=== PATIENT | female | born 1965 | race American Indian/Alaskan Native ===

== ENCOUNTER 2018-04-15 09:49 | Day surgery (SDC) | payer OTHER ==
[~2018-04-15 09:49] MED LIST: Bupivacaine 0.25%/EPINEPHrine 1:200,000 10 ML SDV INJECT ONE; Bupivacaine 0.5% 10 ML SDV ONE; Bupivacaine 25%/EPINEPHrine/PF 30 ML ONE; Clindamycin Phosphate in D5W 600 MG in Premix Bag 1 BAG IV ONE; EPINEPHrine 1 MG/ML SDV ONE; Gentamicin 40 MG/ML 2 ML Vial ONE; Lidocaine 2% 5 ML SDV ONE; Midazolam 1 MG/ML 2 ML SDV ONE; Ondansetron 4 MG Tab.DIS PO PRN; Ondansetron 4 MG/2 ML SDV ONE; Propofol 200 MG/20 ML SDV ONE; Rocuronium 10 MG/ML 10 ML Syringe ONE; ceFAZolin 1 GM Vial ONE; fentaNYL 250 MCG/5 ML SDV ONE
[2018-04-15] MEDS ORDERED: Propofol 200 MG/20 ML SDV ONE ×3 (10:27→14:42)
[2018-04-15] MEDS ORDERED: Lidocaine 2% 5 ML SDV ONE (10:27)
[2018-04-15] MEDS ORDERED: Midazolam 1 MG/ML 2 ML SDV ONE (10:28)
[2018-04-15] MEDS ORDERED: fentaNYL 100 MCG/2 ML SDV ONE (10:28)
[2018-04-15] MEDS ORDERED: Ondansetron 4 MG/2 ML SDV ONE (10:28)
[2018-04-15] MEDS ORDERED: fentaNYL 250 MCG/5 ML SDV ONE (10:29)
--- NOTE | 2018-04-15 11:36 | PCM.PREANE ---
Preanesthetic Assessment - Anesthesia/Transfusion/Family Hx Anesthesia History: Prior Anesthesia Without Reaction Family History of Anesthesia Reaction: No Transfusion History: No Prior Transfusion(s) Intubation History: Unknown - Review of Systems General: No Symptoms Pulmonary: No Symptoms Cardiovascular: No Symptoms Gastrointestinal: No Symptoms Neurological: No Symptoms Other: Reports: None - Physical Assessment Height: 1.68 m Weight: 82.554 kg ASA Class: 2 Mental Status: Alert & Oriented x3 Airway Class: Mallampati = 2 Dentition: Reports: Dentures (upper), Broken Tooth/Teeth (front lower incisor x1 ) Thyro-Mental Finger Breadths: 3 Mouth Opening Finger Breadths: 3 ROM/Head Extension: Full Lungs: Clear to Auscultation, Normal Respiratory Effort Cardiovascular: Regular Rate, Regular Rhythm - Allergies Allergies/Adverse Reactions: Allergies Allergy/AdvReac Type Severity Reaction Status Date / Time aspirin Allergy Hives Verified 04/13/18 07:51 erythromycin base Allergy Anaphylactic Verified 04/13/18 07:51 Shock Penicillins Allergy Anaphylactic Verified 04/13/18 07:51 Shock - Blood Blood Available: No - Anesthesia Plan Pre-Op Medication Ordered: None - Acknowledgements Anesthesia Type Planned: General Anesthesia Pt an Appropriate Candidate for the Planned Anesthesia: Yes Alternatives and Risks of Anesthesia Discussed w Pt/Guardian: Yes Pt/Guardian Understands and Agrees with Anesthesia Plan: Yes PreAnesthesia Questionnaire HEENT History: Reports: Other (See Below) Other HEENT History: wears glasses, has top denture Genitourinary History: Reports: None Musculoskeletal History: Reports: Fracture Other Musculoskeletal History: hx fx toes, ribs, arm and leg Oncologic (Cancer) History: Reports: Breast (right breast invasive breast ductal carcinoma) - Past Surgical History Head Surgeries/Procedures: Reports: None Female Surgical History: Reports: Breast Biopsy Oncologic Surgical History: Reports: Biopsy of Breast - SUBSTANCE USE Smoking Status *Q: Light Tobacco Smoker (5-6 cigarettes per day at present) Tobacco Use Within Last Twelve Months: Cigarettes Recreational Drug Use History: No - HOME MEDS Home Medications: Home Meds Acetaminophen [Tylenol] 2 tab PO ASDIRECTED PRN 04/13/18 [History] - CURRENT (IN HOUSE) MEDS Current Meds: Current Medications Hydrocodone Bitart/Acetaminophen ([place] 325-5 Mg) 1 tab PO Q4H PRN PRN Reason: Pain Lactated Ringer's (Ringers, Lactated) 1,000 mls @ 125 mls/hr IV ASDIRECTED SINDI Ondansetron HCl (Zofran Odt) 4 mg PO Q6H PRN PRN Reason: Nausea/Vomiting Ondansetron HCl (Zofran) 4 mg IVPUSH Q6H PRN PRN Reason: Nausea/Vomiting Discontinued Medications Bupivacaine HCl (Sensorcaine-Mpf 0.5%) Confirm Administered Dose 10 ml .ROUTE .STK-MED ONE Stop: 04/15/18 07:23 Bupivacaine HCl/Epinephrine Bitart (Marc[place] 0.25%/Epinephrine 1:200,000) 10 ml INJECT ONETIME ONE Stop: 04/15/18 08:01 Cefazolin Sodium (Ancef) Confirm Administered Dose 1 gm .ROUTE .STK-MED ONE Stop: 04/15/18 07:23 Epinephrine HCl (Adrenalin) Confirm Administered Dose 1 mg .ROUTE .STK-MED ONE Stop: 04/15/18 07:22 Fentanyl (Sublimaze) Confirm Administered Dose 250 mcg .ROUTE .STK-MED ONE Stop: 04/15/18 08:56 Fentanyl (Sublimaze) Confirm Administered Dose 100 mcg .ROUTE .STK-MED ONE Stop: 04/15/18 10:29 Fentanyl (Sublimaze) Confirm Administered Dose 250 mcg .ROUTE .STK-MED ONE Stop: 04/15/18 10:30 Gentamicin Sulfate (Gentamicin) Confirm Administered Dose 80 mg .ROUTE .STK-MED ONE Stop: 04/15/18 07:22 Clindamycin Phosphate 600 mg/ (Premix) 50 mls @ 150 mls/hr IV ONETIME ONE Stop: 04/15/18 08:19 Bupivacaine HCl/Epinephrine Bitart (Sensorc Mpf 0.25%-Epi 1:451672) Confirm Administered Dose 30 mls @ as directed .ROUTE .STK-MED ONE Stop: 04/15/18 07:23 Lidocaine (Xylocaine-Mpf 2%) Confirm Administered Dose 5 ml .ROUTE .STK-MED ONE Stop: 04/15/18 08:56 Lidocaine (Xylocaine-Mpf 2%) Confirm Administered Dose 5 ml .ROUTE .STK-MED ONE Stop: 04/15/18 10:28 Midazolam HCl (Versed 1 Mg/Ml) Confirm Administered Dose 2 mg .ROUTE .STK-MED ONE Stop: 04/15/18 08:56 Midazolam HCl (Versed 1 Mg/Ml) Confirm Administered Dose 2 mg .ROUTE .STK-MED ONE Stop: 04/15/18 10:29 Ondansetron HCl (Zofran) Confirm Administered Dose 4 mg .ROUTE .STK-MED ONE Stop: 04/15/18 08:56 Ondansetron HCl (Zofran) Confirm Administered Dose 8 mg .ROUTE .STK-MED ONE Stop: 04/15/18 10:29 Propofol (Diprivan 20 Ml) Confirm Administered Dose 200 mg .ROUTE .STK-MED ONE Stop: 04/15/18 08:56 Propofol (Diprivan 20 Ml) Confirm Administered Dose 200 mg .ROUTE .STK-MED ONE Stop: 04/15/18 10:28 Propofol (Diprivan 20 Ml) Confirm Administered Dose 400 mg .ROUTE .STK-MED ONE Stop: 04/15/18 10:29 Rocuronium [place] (Zemuron) Confirm Administered Dose 100 mg .ROUTE .STK-MED ONE Stop: 04/15/18 08:56
[2018-04-15] MEDS ORDERED: Clindamycin Phosphate in D5W 50 ML ONE (11:52)
[2018-04-15] MEDS ORDERED: Clindamycin Phosphate in D5W 600 MG in Premix Bag 1 BAG IV ONE ×2 (12:00)
[2018-04-15] MEDS ORDERED: ePHEDrine 50 MG/ML SDV ONE (12:26)
--- NOTE | 2018-04-15 12:31 | NM ---
EXAMINATION: NM right breast lymphoscintigraphy HISTORY: Breast cancer COMPARISON: CT dated 03/08/2018 TECHNIQUE: The procedure, risks, and benefits were discussed with the patient. The right breast was p repped with ChloraPrep. A total of 8 intradermal injections were obtained around the right areola. FINDINGS/IMPRESSION: There is a sentinel lymph node which appears almost immediately within the right axilla.
[2018-04-15] MEDS ORDERED: HYDROmorphone 2 MG/ML SDV ONE ×2 (13:19→16:40)
[2018-04-15] MEDS ORDERED: Sugammadex Sodium 200 MG/2 ML VIAL ONE (13:54)
--- NOTE | 2018-04-15 15:28 | PCM.OPNOTE ---
- General Post-Op/Procedure Note Date of Surgery/Procedure: 04/15/18 Operative Procedure(s): Right sentinel lymph node biopsy and right mastectomy Findings: ~3-4 cm mass in the right upper outer quadrant of the breast. 2 lymph nodes. no evidence of metastases on frozen Pre Op Diagnosis: Right breast invasive ductal carcinoma Post-Op Diagnosis: same Anesthesia Technique: General ET Tube Primary Surgeon: Fior Kelly Secondary Surgeon: Thao Mixon Fluid Replacement, Intraop: 3,900 Output, Urine Amount: 75 EBL in mLs: 100 Surgical Drain/Tube Type: [place] Flat Drain Drain/Tube Comments:: [address] Condition: Good
[2018-04-15] MEDS ORDERED: Clindamycin HCl 150 MG Cap PO SCH (15:30)
[2018-04-15] MEDS ORDERED: Promethazine 25 MG/ML SDV IM PRN (15:31)
[2018-04-15] MEDS ORDERED: diphenhydrAMINE 50 MG/ML SDV IVPUSH PRN (15:31)
--- NOTE | 2018-04-15 16:05 | PCM.OPNOTE ---
- General Post-Op/Procedure Note Date of Surgery/Procedure: 04/15/18 Operative Procedure(s): 1. Right breast reconstruction with 520cc silicone breast implant. 2. Left breast symmetry procedure - mastopexy Pre Op Diagnosis: s/p mastectomy and need for reconstruction Post-Op Diagnosis: Same Anesthesia Technique: General ET Tube, Local Primary Surgeon: Thao Mixon Secondary Surgeon: Fior Kelly EBL in mLs: 100 (for both protions of the case) Surgical Drain/Tube Type: [place] Drain (3 total - 1 size 10 axillary, 2 size 7 breast (one above and one below allomax).) Complications: None Condition: Good Free Text/Narrative:: Intake & Output 04/15/18 04/15/18 04/15/18 07:59 15:59 23:59 Intake Total 3900 Output Total 75 Balance 7045
[2018-04-15] MEDS: fentaNYL 100 MCG/2 ML SDV IVPUSH PRN ×2 (16:16→16:22)
--- NOTE | 2018-04-15 16:35 | PCM.POSTAN ---
POST ANESTHESIA ASSESSMENT - MENTAL STATUS Mental Status: Alert, Oriented - RESPIRATORY Respiratory Status: Respiratory Rate WNL, Airway Patent, O2 Saturation Stable - CARDIOVASCULAR CV Status: Pulse Rate WNL, Blood Pressure Stable - GASTROINTESTINAL GI Status: No Symptoms - PAIN Pain Score: 5 - POST OP HYDRATION Hydration Status: Adequate & Stable - OBSERVATIONS Free Text/Narrative:: Pt states pain as a 6 but unable to keep eyes open and slowly answering questions at this time. Will continue to monitor status on floor.
[2018-04-15] MEDS: Lactated Ringers 1,000 ML IV SCH (17:30)
[2018-04-15] MEDS: HYDROmorphone 1 MG/ML Syringe IVPUSH PRN (17:52)
[2018-04-15] MEDS: Clindamycin HCl 150 MG Cap PO SCH ×2 (17:57→21:34)
--- NOTE | 2018-04-15 19:28 | OR ---
SURGEON: FIOR KELLY MD DATE OF PROCEDURE: 04/15/2018 PREOPERATIVE DIAGNOSIS: Invasive ductal carcinoma of the right breast. POSTOPERATIVE DIAGNOSIS: Invasive ductal carcinoma of the right breast. PROCEDURES PERFORMED: Right sentinel lymph node biopsy, and right mastectomy. PRIMARY SURGEON: Fior Kelly MD SECONDARY SURGEON: Thao Mixon MD FLUIDS: 3900 mL. ESTIMATED BLOOD LOSS: 100 mL. URINE OUTPUT: 75 mL. SPECIMENS: Right sentinel lymph node, right breast tissue. FINDINGS: Two sentinel lymph nodes in right axilla, right upper outer quadrant breast mass that abutted the muscular or the pectoralis. COMPLICATIONS: None. INDICATIONS: The patient is a 52-year-old female, diagnosed with invasive ductal carcinoma of the right upper outer quadrant of the breast. The patient was scheduled to undergo a lumpectomy earlier this year; however, this was canceled. Preoperative workup revealed the mass now to be larger with no evidence radiologically or clinically of kimberly metastases. Given its larger size, the decision was made to perform a mastectomy. We discussed sentinel lymph node biopsy and right breast mastectomy. The patient met with Dr. Hien Mixon regarding her reconstruction options. She elected to go immediate breast reconstruction. From my portion of the case, I discussed the procedure with the patient. We discussed the expected perioperative course. We discussed the risks including bleeding, infection, or damage to surrounding structures. The patient verbalized understanding and wishes to proceed. PROCEDURE IN DETAIL: The patient was brought into the OR and placed on the OR table in supine position. A time-out was completed verifying the patient's name, age, date of , allergies, and procedure to be performed. General endotracheal anesthesia was induced. The chest and upper arms were prepped and draped in standard fashion. 5 mL of 1% Lymphazurin blue was injected subdermally around the areola of the right breast. This was massaged for 5 minutes to allow dispersion of the dye through the lymphatic system. MoVoxx counter was then brought into the field and I evaluated the right axilla. Radioactivity was indicated along the lower part of the axilla. An incision was made around the superior half of the areola extending laterally towards the axilla. Cautery was then used to dissect down through the skin down to the subcutaneous fat. Dr. Mixon and I focused our attention on the lateral most aspect of the incision. Cautery and blunt dissection were used to dissect down to the level of the axilla. The axillary fascia was opened with Metzenbaum scissors and the Emmanuel counter guided our dissection. Two areas of increased radioactivity and blue dye were noted within the axilla. The first node was removed and a Emmanuel counter was used to measure its radioactivity on the back table. This measured 1777. The second lymph node was then removed and its reading was 550. No further radioactivity was noted within the axilla. Cautery was used to achieve hemostasis. We then turned our attention to the breast tissue. Superior and inferior skin flaps were created and dissected off the underlying breast tissue with cautery. The nipple was spared. The breast cancer was palpated in the right upper outer quadrant, this came close to the skin as well as close to the pectoralis fascia below it. The breast tissue was then excised off the overlying pectoralis fascia using cautery. This was done in a medial to lateral fashion. Once the breast was from its surrounding tissue, it was marked. The cranial and caudal edges were marked with suture as well as axillary tail and medial tail. The retroareolar tissue was stained with Lymphazurin blue, but marked with a suture as well. The operative field was irrigated copiously with normal saline. Hemostasis was obtained with cautery. The case was then turned over to Dr. Thao Mixon for the reconstruction portion. Please see her note for further details. ERYN PORRAS /[id number] [place]
[2018-04-15] MEDS: Acetaminophen/HYDROcodone 325-5 MG Tab PO PRN (19:45)
[2018-04-15] MEDS: Ondansetron 4 MG/2 ML SDV IVPUSH PRN (21:46)
[2018-04-16] MEDS: Lactated Ringers 1,000 ML IV SCH (00:58)
[2018-04-16] MEDS: Acetaminophen/HYDROcodone 325-5 MG Tab PO PRN ×2 (02:46→14:24)
[2018-04-16] MEDS: Clindamycin HCl 150 MG Cap PO SCH ×2 (03:35→09:52)
[2018-04-16] MEDS: HYDROmorphone 1 MG/ML Syringe IVPUSH PRN (08:27)
[2018-04-16] MEDS ORDERED: Cyclobenzaprine 5 MG Tab PO PRN (08:39)
--- NOTE | 2018-04-16 08:51 | PCM.SURGPN ---
- General Info Date of Service: 04/16/18 Date of Surgery/Procedure: 04/15/18 Admission Diagnosis/Problem: Breast neoplasm Functional Status: Reports: Other (Complaining of pressure and pain along right chest and in right axilla. Vitals stable overnight. Taking [place] and given IV dilaudid for severe pain this morning. Drain output 131ml total since surgery. ) - Review of Systems General: Reports: No Symptoms Pulmonary: Reports: Shortness of Breath (due to pressure feeliong over right chest with bra on) Cardiovascular: Reports: Other (Pain along right side of chest ) Gastrointestinal: Reports: No Symptoms - Patient Data Vitals - Most Recent: Last Vital Signs Temp 37.0 C 04/16/18 00:00 Pulse 89 04/16/18 00:00 Resp 16 04/16/18 00:00 BP 137/75 04/16/18 00:00 Pulse Ox 94 L 04/16/18 00:00 Weight - Most Recent: 82.554 kg I&O - Last 24 Hours: Intake & Output 04/15/18 04/16/18 04/16/18 22:59 06:59 14:59 Intake Total 7900 2354 Output Total 125 4281 Balance 7775 -1927 Med Orders - Current: Current Medications Hydrocodone Bitart/Acetaminophen ([place] 325-5 Mg) 1 tab PO Q4H PRN PRN Reason: Pain Last Admin: 04/16/18 02:46 Dose: 2 tab Bisacodyl (Dulcolax) 5 mg PO DAILY [facility] Last Admin: 04/16/18 08:27 Dose: 5 mg Clindamycin HCl (Cleocin) 300 mg PO Q6H [facility] Last Admin: 04/16/18 03:35 Dose: 300 mg Cyclobenzaprine HCl (Flexeril) 5 mg PO TID PRN PRN Reason: Muscle Spasm Diphenhydramine HCl (Benadryl) 25 mg IVPUSH Q4H PRN PRN Reason: Itching Fentanyl (Sublimaze) 50 mcg IVPUSH Q5M PRN PRN Reason: Pain (severe 7-10) Stop: 04/16/18 14:44 Last Admin: 04/15/18 16:22 Dose: 50 mcg Hydromorphone HCl (Dilaudid) 0.5 mg IVPUSH Q1H PRN PRN Reason: Pain Last Admin: 04/16/18 08:27 Dose: 0.5 mg Lactated Ringer's (Ringers, Lactated) 1,000 mls @ 125 mls/hr IV ASDIRECTED SINDI Last Admin: 04/16/18 00:58 Dose: 125 mls/hr Ondansetron HCl (Zofran Odt) 4 mg PO Q6H PRN PRN Reason: Nausea/Vomiting Ondansetron HCl (Zofran) 4 mg IVPUSH Q6H PRN PRN Reason: Nausea/Vomiting Last Admin: 04/15/18 21:46 Dose: 4 mg Promethazine HCl (Phenergan) 25 mg IM Q6H PRN PRN Reason: Nausea Discontinued Medications Bupivacaine HCl (Sensorcaine-Mpf 0.5%) Confirm Administered Dose 10 ml .ROUTE .STK-MED ONE Stop: 04/15/18 07:23 Bupivacaine HCl/Epinephrine Bitart (Marcaine 0.25%/Epinephrine 1:200,000) 10 ml INJECT ONETIME ONE Stop: 04/15/18 08:01 Last Admin: 04/15/18 17:31 Dose: Not Given Cefazolin Sodium (Ancef) Confirm Administered Dose 1 gm .ROUTE .STK-MED ONE Stop: 04/15/18 07:23 Clindamycin HCl (Cleocin) 450 mg PO Q6H [facility] Last Admin: 04/15/18 18:23 Dose: Not Given Ephedrine Sulfate (Ephedrine Sulfate) Confirm Administered Dose 50 mg .ROUTE .STK-MED ONE Stop: 04/15/18 12:27 Epinephrine HCl (Adrenalin) Confirm Administered Dose 1 mg .ROUTE .STK-MED ONE Stop: 04/15/18 07:22 Fentanyl (Sublimaze) Confirm Administered Dose 250 mcg .ROUTE .STK-MED ONE Stop: 04/15/18 08:56 Fentanyl (Sublimaze) Confirm Administered Dose 100 mcg .ROUTE .STK-MED ONE Stop: 04/15/18 10:29 Fentanyl (Sublimaze) Confirm Administered Dose 250 mcg .ROUTE .STK-MED ONE Stop: 04/15/18 10:30 Gentamicin Sulfate (Gentamicin) Confirm Administered Dose 80 mg .ROUTE .STK-MED ONE Stop: 04/15/18 07:22 Hydromorphone HCl (Dilaudid) Confirm Administered Dose 2 mg .ROUTE .STK-MED ONE Stop: 04/15/18 13:20 Hydromorphone HCl (Dilaudid) Confirm Administered Dose 2 mg .ROUTE .STK-MED ONE Stop: 04/15/18 16:41 Last Admin: 04/15/18 16:43 Dose: 0.5 mg Clindamycin Phosphate 600 mg/ (Premix) 50 mls @ 150 mls/hr IV ONETIME ONE Stop: 04/15/18 08:19 Last Admin: 04/15/18 17:30 Dose: Not Given Bupivacaine HCl/Epinephrine Bitart (Sensorc Mpf 0.25%-Epi 1:[id number]) Confirm Administered Dose 30 mls @ as directed .ROUTE .STK-MED ONE Stop: 04/15/18 07:23 Clindamycin Phosphate 600 mg/ (Premix) 50 mls @ 150 mls/hr IV ONETIME ONE Stop: 04/15/18 12:19 Last Admin: 04/15/18 17:30 Dose: Not Given Clindamycin Phosphate (Cleocin In D5w) Confirm Administered Dose 50 mls @ as directed .ROUTE .STK-MED ONE Stop: 04/15/18 11:53 Last Admin: 04/15/18 17:31 Dose: Not Given Lidocaine (Xylocaine-Mpf 2%) Confirm Administered Dose 5 ml .ROUTE .STK-MED ONE Stop: 04/15/18 08:56 Lidocaine (Xylocaine-Mpf 2%) Confirm Administered Dose 5 ml .ROUTE .STK-MED ONE Stop: 04/15/18 10:28 Midazolam HCl (Versed 1 Mg/Ml) Confirm Administered Dose 2 mg .ROUTE .STK-MED ONE Stop: 04/15/18 08:56 Midazolam HCl (Versed 1 Mg/Ml) Confirm Administered Dose 2 mg .ROUTE .STK-MED ONE Stop: 04/15/18 10:29 Ondansetron HCl (Zofran) Confirm Administered Dose 4 mg .ROUTE .STK-MED ONE Stop: 04/15/18 08:56 Ondansetron HCl (Zofran) Confirm Administered Dose 8 mg .ROUTE .STK-MED ONE Stop: 04/15/18 10:29 Propofol (Diprivan 20 Ml) Confirm Administered Dose 200 mg .ROUTE .STK-MED ONE Stop: 04/15/18 08:56 Propofol (Diprivan 20 Ml) Confirm Administered Dose 200 mg .ROUTE .STK-MED ONE Stop: 04/15/18 10:28 Propofol (Diprivan 20 Ml) Confirm Administered Dose 400 mg .ROUTE .STK-MED ONE Stop: 04/15/18 10:29 Propofol (Diprivan 20 Ml) Confirm Administered Dose 200 mg .ROUTE .STK-MED ONE Stop: 04/15/18 14:43 Rocuronium [place] (Zemuron) Confirm Administered Dose 100 mg .ROUTE .STK-MED ONE Stop: 04/15/18 08:56 - Exam Wound/Incisions: Healing Well, Dressing Dry and Intact, Other (Drains with scant serosanguinous drainage. Skin flaps appear healthy with no breakdown. ). No: Erythema General: Alert, Oriented, Moderate Distress HEENT: Pupils Equal, Pupils Reactive Lungs: Normal Respiratory Effort Cardiovascular: Regular Rate Skin: Warm, Dry, Intact - Problem List & Annotations (1) Breast neoplasm Status: Acute Current Visit: Yes - Problem List Review Problem List Initiated/Reviewed/Updated: Yes - My Orders Last 24 Hours: Active Orders 24 hr Category Date Time Status Admission Status [Patient Status] [ADT] Routine ADT 04/16/18 08:37 Active Drain Management [RC] Q4H Care 04/15/18 15:00 Active Notify Provider Vital Signs [RC] PRN Care 04/15/18 15:32 Active Occlusive Dressing [Wound Care] [RC] DAILY Care 04/15/18 16:07 Active Overnight Pulse Oximetry [RC] Click to Edit Care 04/15/18 15:58 Active RT Incentive Spirometry [RC] ASDIRECTED Care 04/15/18 15:31 Active Up ad Cherelle [RC] ASDIRECTED Care 04/15/18 15:31 Active Regular Diet [DIET] Diet 04/15/18 Dinner Active Acetaminophen/HYDROcodone [[place] 325-5 MG] Med 04/15/18 08:00 Active 1 tab PO Q4H PRN Bisacodyl [Dulcolax] Med 04/16/18 09:00 Active 5 mg PO DAILY Clindamycin HCl [Cleocin] Med 04/15/18 16:06 Active 300 mg PO Q6H Cyclobenzaprine [Flexeril] Med 04/16/18 08:39 Ordered 5 mg PO TID PRN HYDROmorphone [Dilaudid] Med 04/15/18 15:29 Active 0.5 mg IVPUSH Q1H PRN Lactated Ringers [Ringers, Lactated] 1,000 ml Med 04/15/18 08:00 Active IV ASDIRECTED Promethazine [Phenergan] Med 04/15/18 15:31 Active 25 mg IM Q6H PRN diphenhydrAMINE [Benadryl] Med 04/15/18 15:31 Active 25 mg IVPUSH Q4H PRN fentaNYL [Sublimaze] Med 04/15/18 14:44 Active 50 mcg IVPUSH Q5M PRN Pulse Oximetry Continuous Monitoring [OM.PC] Routine Oth 04/15/18 15:57 Ordered Sequential Compression Device [OM.PC] Routine Oth 04/15/18 08:00 Ordered Medication Orders Hydrocodone Bitart/Acetaminophen ([place] 325-5 Mg) 1 tab PO Q4H PRN PRN Reason: Pain Last Admin: 04/16/18 02:46 Dose: 2 tab Admin: 04/15/18 19:45 Dose: 2 tab Bisacodyl (Dulcolax) 5 mg PO DAILY SINDI Last Admin: 04/16/18 08:27 Dose: 5 mg Clindamycin HCl (Cleocin) 300 mg PO Q6H SINDI Last Admin: 04/16/18 03:35 Dose: 300 mg Admin: 04/15/18 21:34 Dose: 300 mg Admin: 04/15/18 17:57 Dose: 300 mg Cyclobenzaprine HCl (Flexeril) 5 mg PO TID PRN PRN Reason: Muscle Spasm Diphenhydramine HCl (Benadryl) 25 mg IVPUSH Q4H PRN PRN Reason: Itching Fentanyl (Sublimaze) 50 mcg IVPUSH Q5M PRN PRN Reason: Pain (severe 7-10) Stop: 04/16/18 14:44 Last Admin: 04/15/18 16:22 Dose: 50 mcg Admin: 04/15/18 16:16 Dose: 50 mcg Hydromorphone HCl (Dilaudid) 0.5 mg IVPUSH Q1H PRN PRN Reason: Pain Last Admin: 04/16/18 08:27 Dose: 0.5 mg Admin: 04/15/18 17:52 Dose: 0.5 mg Lactated Ringer's (Ringers, Lactated) 1,000 mls @ 125 mls/hr IV ASDIRECTED [facility] Last Admin: 04/16/18 00:58 Dose: 125 mls/hr Infusion: 04/16/18 00:58 Dose: 125 mls/hr Admin: 04/15/18 17:30 Dose: 125 mls/hr Ondansetron HCl (Zofran Odt) 4 mg PO Q6H PRN PRN Reason: Nausea/Vomiting Ondansetron HCl (Zofran) 4 mg IVPUSH Q6H PRN PRN Reason: Nausea/Vomiting Last Admin: 04/15/18 21:46 Dose: 4 mg Promethazine HCl (Phenergan) 25 mg IM Q6H PRN PRN Reason: Nausea - Plan Plan (Free Text/Narrative):: Pain: IV dilaudid prn severe pain. [place] 1-2 tab q 4hr prn pain. Flexeril 5 mg TID prn muscle spasms CV: Stable GI: regular diet as tolerated Renal: UOP adequate. Hold IV fluids ID: Clindamycin as long as drains in place Px: SCDs Dispo: Switched to Observation for now. Will check on patient later tonight. If pain well controlled and doing better will discharge home.
[2018-04-16] MEDS ORDERED: Bisacodyl 5 MG Tab PO SCH (09:00)
[2018-04-16] MEDS: Ondansetron 4 MG/2 ML SDV IVPUSH PRN (10:03)
--- NOTE | 2018-04-16 10:21 | PCM.PN ---
- General Info Date of Service: 04/16/18 Admission Dx/Problem (Free Text): post op day 1 from breast reconstruction on the right and symmetry lift on the left. doing well but bra was biggest problem. Functional Status: Reports: Pain Controlled, Tolerating Diet - Review of Systems General: Reports: Malaise Pulmonary: Denies: Shortness of Breath Cardiovascular: Reports: Chest Pain (with bra compression) Gastrointestinal: Reports: Nausea. Denies: Difficulty Swallowing, Vomiting Genitourinary: Reports: No Symptoms Musculoskeletal: Reports: Shoulder Pain Skin: Reports: Bruising. Denies: Rash Neurological: Denies: Numbness, Tingling Psychiatric: Reports: No Symptoms - Patient Data Vitals - Most Recent: Last Vital Signs Temp 99.4 F 04/16/18 08:00 Pulse 72 04/16/18 08:00 Resp 16 04/16/18 08:00 BP 140/84 04/16/18 08:00 Pulse Ox 94 L 04/16/18 08:00 Weight - Most Recent: 182 lb I&O - Last 24 Hours: Intake & Output 04/15/18 04/16/18 04/16/18 23:59 07:59 15:59 Intake Total 4000 2354 Output Total 50 4281 29 Balance 3950 -1927 -29 Med Orders - Current: Current Medications Hydrocodone Bitart/Acetaminophen ([place] 325-5 Mg) 1 tab PO Q4H PRN PRN Reason: Pain Last Admin: 04/16/18 02:46 Dose: 2 tab Bisacodyl (Dulcolax) 5 mg PO DAILY [facility] Last Admin: 04/16/18 08:27 Dose: 5 mg Clindamycin HCl (Cleocin) 300 mg PO Q6H [facility] Last Admin: 04/16/18 09:52 Dose: 300 mg Cyclobenzaprine HCl (Flexeril) 5 mg PO TID PRN PRN Reason: Muscle Spasm Last Admin: 04/16/18 09:52 Dose: 5 mg Diphenhydramine HCl (Benadryl) 25 mg IVPUSH Q4H PRN PRN Reason: Itching Fentanyl (Sublimaze) 50 mcg IVPUSH Q5M PRN PRN Reason: Pain (severe 7-10) Stop: 04/16/18 14:44 Last Admin: 04/15/18 16:22 Dose: 50 mcg Hydromorphone HCl (Dilaudid) 0.5 mg IVPUSH Q1H PRN PRN Reason: Pain Last Admin: 04/16/18 08:27 Dose: 0.5 mg Ondansetron HCl (Zofran Odt) 4 mg PO Q6H PRN PRN Reason: Nausea/Vomiting Ondansetron HCl (Zofran) 4 mg IVPUSH Q6H PRN PRN Reason: Nausea/Vomiting Last Admin: 04/16/18 10:03 Dose: 4 mg Promethazine HCl (Phenergan) 25 mg IM Q6H PRN PRN Reason: Nausea Discontinued Medications Bupivacaine HCl (Sensorcaine-Mpf 0.5%) Confirm Administered Dose 10 ml .ROUTE .STK-MED ONE Stop: 04/15/18 07:23 Bupivacaine HCl/Epinephrine Bitart (Marcaine 0.25%/Epinephrine 1:200,000) 10 ml INJECT ONETIME ONE Stop: 04/15/18 08:01 Last Admin: 04/15/18 17:31 Dose: Not Given Cefazolin Sodium (Ancef) Confirm Administered Dose 1 gm .ROUTE .STK-MED ONE Stop: 04/15/18 07:23 Clindamycin HCl (Cleocin) 450 mg PO Q6H [facility] Last Admin: 04/15/18 18:23 Dose: Not Given Ephedrine Sulfate (Ephedrine Sulfate) Confirm Administered Dose 50 mg .ROUTE .STK-MED ONE Stop: 04/15/18 12:27 Epinephrine HCl (Adrenalin) Confirm Administered Dose 1 mg .ROUTE .STK-MED ONE Stop: 04/15/18 07:22 Fentanyl (Sublimaze) Confirm Administered Dose 250 mcg .ROUTE .STK-MED ONE Stop: 04/15/18 08:56 Fentanyl (Sublimaze) Confirm Administered Dose 100 mcg .ROUTE .STK-MED ONE Stop: 04/15/18 10:29 Fentanyl (Sublimaze) Confirm Administered Dose 250 mcg .ROUTE .STK-MED ONE Stop: 04/15/18 10:30 Gentamicin Sulfate (Gentamicin) Confirm Administered Dose 80 mg .ROUTE .STK-MED ONE Stop: 04/15/18 07:22 Hydromorphone HCl (Dilaudid) Confirm Administered Dose 2 mg .ROUTE .STK-MED ONE Stop: 04/15/18 13:20 Hydromorphone HCl (Dilaudid) Confirm Administered Dose 2 mg .ROUTE .STK-MED ONE Stop: 04/15/18 16:41 Last Admin: 04/15/18 16:43 Dose: 0.5 mg Clindamycin Phosphate 600 mg/ (Premix) 50 mls @ 150 mls/hr IV ONETIME ONE Stop: 04/15/18 08:19 Last Admin: 04/15/18 17:30 Dose: Not Given Lactated Ringer's (Ringers, Lactated) 1,000 mls @ 125 mls/hr IV ASDIRECTED [facility] Last Admin: 04/16/18 00:58 Dose: 125 mls/hr Bupivacaine HCl/Epinephrine Bitart (Sensorc Mpf 0.25%-Epi 1:116545) Confirm Administered Dose 30 mls @ as directed .ROUTE .STK-MED ONE Stop: 04/15/18 07:23 Clindamycin Phosphate 600 mg/ (Premix) 50 mls @ 150 mls/hr IV ONETIME ONE Stop: 04/15/18 12:19 Last Admin: 04/15/18 17:30 Dose: Not Given Clindamycin Phosphate (Cleocin In D5w) Confirm Administered Dose 50 mls @ as directed .ROUTE .STK-MED ONE Stop: 04/15/18 11:53 Last Admin: 04/15/18 17:31 Dose: Not Given Lidocaine (Xylocaine-Mpf 2%) Confirm Administered Dose 5 ml .ROUTE .STK-MED ONE Stop: 04/15/18 08:56 Lidocaine (Xylocaine-Mpf 2%) Confirm Administered Dose 5 ml .ROUTE .STK-MED ONE Stop: 04/15/18 10:28 Midazolam HCl (Versed 1 Mg/Ml) Confirm Administered Dose 2 mg .ROUTE .STK-MED ONE Stop: 04/15/18 08:56 Midazolam HCl (Versed 1 Mg/Ml) Confirm Administered Dose 2 mg .ROUTE .STK-MED ONE Stop: 04/15/18 10:29 Ondansetron HCl (Zofran) Confirm Administered Dose 4 mg .ROUTE .STK-MED ONE Stop: 04/15/18 08:56 Ondansetron HCl (Zofran) Confirm Administered Dose 8 mg .ROUTE .STK-MED ONE Stop: 04/15/18 10:29 Propofol (Diprivan 20 Ml) Confirm Administered Dose 200 mg .ROUTE .STK-MED ONE Stop: 04/15/18 08:56 Propofol (Diprivan 20 Ml) Confirm Administered Dose 200 mg .ROUTE .STK-MED ONE Stop: 04/15/18 10:28 Propofol (Diprivan 20 Ml) Confirm Administered Dose 400 mg .ROUTE .STK-MED ONE Stop: 04/15/18 10:29 Propofol (Diprivan 20 Ml) Confirm Administered Dose 200 mg .ROUTE .STK-MED ONE Stop: 04/15/18 14:43 Rocuronium Omer (Zemuron) Confirm Administered Dose 100 mg .ROUTE .STK-MED ONE Stop: 04/15/18 08:56 - Exam General: Alert, Oriented, Cooperative HEENT: Pupils Reactive, EOMI Lungs: Normal Respiratory Effort Extremities: Arm Pain, Limited Range of Motion. No: Pedal Edema, Redness Skin: Warm, Dry Wound/Incisions: Healing Well, Dressing Dry and Intact, Drainage (in dorita in serosanguinous. ). No: Erythema Neurological: No New Focal Deficit Psy/Mental Status: Alert, Normal Affect, Normal Mood - Problem List & Annotations (1) Admission for breast reconstruction following mastectomy SNOMED Code(s): 164244982, 222900912 Code(s): Z42.1 - ENCOUNTER FOR BREAST RECONSTRUCTION FOLLOWING MASTECTOMY Status: Acute Priority: Medium Current Visit: Yes (2) Breast neoplasm Status: Acute Priority: High Current Visit: Yes - Problem List Review Problem List Initiated/Reviewed/Updated: Yes - My Orders Last 24 Hours: My Active Orders 04/15/18 15:00 Drain Management [RC] Q4H 04/15/18 16:06 Clindamycin HCl [Cleocin] 300 mg PO Q6H 04/15/18 16:07 Occlusive Dressing [Wound Care] [RC] DAILY - Plan Plan:: continued observation and pain control. d/c bra. OK to shower norco and IV meds if needed clindamycin while drains in place teach drain cares 10lb wt limit
--- NOTE | 2018-04-16 13:54 | PCM.DCSUM1 ---
Discharge Summary - Hospital Course Free Text/Narrative:: Patient is a 52 year old female who underwent a right mastectomy, SLNBx, and left mastopexy for invasive ductal carcinoma of the breast. She was admited for pain and nausea control overnight. Vitals stable. UOP adequate. This morning patient was c/o severe pain associated with her support bra. This was removed and her pain improved significantly. She had a small amount of nausea on getting up to the bathroom which was relieved with zofran. This afternoon she is pain free and feeling well. Tolerating diet. Will be discharged home with follow up appointment in my office Wed or Wednesday of next week. Nursing to teach drain cares and output recording. - Discharge Data Discharge Date: 04/16/18 Discharge Disposition: Home, Self-Care 01 Condition: Good - Discharge Diagnosis/Problem(s) (1) Breast neoplasm Status: Acute Priority: High Current Visit: Yes - Patient Summary/Data Operative Procedure(s) Performed: 1. Right breast reconstruction with 520cc silicone breast implant. 2. Left breast symmetry procedure - mastopexy - Patient Instructions Diet: Regular Diet as Tolerated Activity: Non Weight Bearing (No lifting >10lb for four weeks ), Rest and Relax Today Driving: Do Not Drive (for one week ) Showering/Bathing: May Shower, No Tub Bathing/Swimming (for two weeks ) Wound/Incision Care: Keep Operative Site/Wound Site Clean and Dry Notify Provider of: Fever, Increased Pain, Swelling and Redness, Drainage (from incisions that looks like pus ), Nausea and/or Vomiting - Discharge Plan Prescriptions/Med Rec: Bisacodyl [Dulcolax] 5 mg PO DAILY #14 tablet Clindamycin HCl [Cleocin] 300 mg PO Q6H #28 cap Cyclobenzaprine [Flexeril] 5 mg PO TID PRN #20 tablet PRN Reason: Muscle Spasm Home Medications: Home Meds Bisacodyl [Dulcolax] 5 mg PO DAILY #14 tablet 04/16/18 [Rx] Clindamycin HCl [Cleocin] 300 mg PO Q6H #28 cap 04/16/18 [Rx] Cyclobenzaprine [Flexeril] 5 mg PO TID PRN #20 tablet 04/16/18 [Rx] Patient Handouts: Total or Modified Radical Mastectomy, Care After, Surgical Drain Home Care Referrals: Fior Kelly MD [Physician] - 04/27/18 9:00 am - General Info Functional Status: Reports: Pain Controlled, Tolerating Diet, Ambulating, Urinating - Review of Systems General: Reports: No Symptoms HEENT: Reports: No Symptoms Pulmonary: Reports: No Symptoms Cardiovascular: Reports: No Symptoms Gastrointestinal: Reports: No Symptoms - Patient Data Vitals - Most Recent: Last Vital Signs Temp 37.5 C 04/16/18 12:00 Pulse 73 04/16/18 12:00 Resp 16 04/16/18 12:00 BP 136/72 04/16/18 12:00 Pulse Ox 97 04/16/18 12:00 Weight - Most Recent: 82.554 kg I&O - Last 24 hours: Intake & Output 04/15/18 04/16/18 04/16/18 22:59 06:59 14:59 Intake Total 7900 2354 Output Total 125 4281 52 Balance 7775 -1927 -52 Med Orders - Current: Current Medications Hydrocodone Bitart/Acetaminophen ([place] 325-5 Mg) 1 tab PO Q4H PRN PRN Reason: Pain Last Admin: 04/16/18 02:46 Dose: 2 tab Bisacodyl (Dulcolax) 5 mg PO DAILY [facility] Last Admin: 04/16/18 08:27 Dose: 5 mg Clindamycin HCl (Cleocin) 300 mg PO Q6H [facility] Last Admin: 04/16/18 09:52 Dose: 300 mg Cyclobenzaprine HCl (Flexeril) 5 mg PO TID PRN PRN Reason: Muscle Spasm Last Admin: 04/16/18 09:52 Dose: 5 mg Diphenhydramine HCl (Benadryl) 25 mg IVPUSH Q4H PRN PRN Reason: Itching Fentanyl (Sublimaze) 50 mcg IVPUSH Q5M PRN PRN Reason: Pain (severe 7-10) Stop: 04/16/18 14:44 Last Admin: 04/15/18 16:22 Dose: 50 mcg Hydromorphone HCl (Dilaudid) 0.5 mg IVPUSH Q1H PRN PRN Reason: Pain Last Admin: 04/16/18 08:27 Dose: 0.5 mg Ondansetron HCl (Zofran Odt) 4 mg PO Q6H PRN PRN Reason: Nausea/Vomiting Ondansetron HCl (Zofran) 4 mg IVPUSH Q6H PRN PRN Reason: Nausea/Vomiting Last Admin: 04/16/18 10:03 Dose: 4 mg Promethazine HCl (Phenergan) 25 mg IM Q6H PRN PRN Reason: Nausea Discontinued Medications Bupivacaine HCl (Sensorcaine-Mpf 0.5%) Confirm Administered Dose 10 ml .ROUTE .STK-MED ONE Stop: 04/15/18 07:23 Bupivacaine HCl/Epinephrine Bitart (Marcaine 0.25%/Epinephrine 1:200,000) 10 ml INJECT ONETIME ONE Stop: 04/15/18 08:01 Last Admin: 04/15/18 17:31 Dose: Not Given Cefazolin Sodium (Ancef) Confirm Administered Dose 1 gm .ROUTE .STK-MED ONE Stop: 04/15/18 07:23 Clindamycin HCl (Cleocin) 450 mg PO Q6H [facility] Last Admin: 04/15/18 18:23 Dose: Not Given Ephedrine Sulfate (Ephedrine Sulfate) Confirm Administered Dose 50 mg .ROUTE .STK-MED ONE Stop: 04/15/18 12:27 Epinephrine HCl (Adrenalin) Confirm Administered Dose 1 mg .ROUTE .STK-MED ONE Stop: 04/15/18 07:22 Fentanyl (Sublimaze) Confirm Administered Dose 250 mcg .ROUTE .STK-MED ONE Stop: 04/15/18 08:56 Fentanyl (Sublimaze) Confirm Administered Dose 100 mcg .ROUTE .STK-MED ONE Stop: 04/15/18 10:29 Fentanyl (Sublimaze) Confirm Administered Dose 250 mcg .ROUTE .STK-MED ONE Stop: 04/15/18 10:30 Gentamicin Sulfate (Gentamicin) Confirm Administered Dose 80 mg .ROUTE .STK-MED ONE Stop: 04/15/18 07:22 Hydromorphone HCl (Dilaudid) Confirm Administered Dose 2 mg .ROUTE .STK-MED ONE Stop: 04/15/18 13:20 Hydromorphone HCl (Dilaudid) Confirm Administered Dose 2 mg .ROUTE .STK-MED ONE Stop: 04/15/18 16:41 Last Admin: 04/15/18 16:43 Dose: 0.5 mg Clindamycin Phosphate 600 mg/ (Premix) 50 mls @ 150 mls/hr IV ONETIME ONE Stop: 04/15/18 08:19 Last Admin: 04/15/18 17:30 Dose: Not Given Lactated Ringer's (Ringers, Lactated) 1,000 mls @ 125 mls/hr IV ASDIRECTED [facility] Last Admin: 04/16/18 00:58 Dose: 125 mls/hr Bupivacaine HCl/Epinephrine Bitart (Sensorc Mpf 0.25%-Epi 1:764925) Confirm Administered Dose 30 mls @ as directed .ROUTE .STK-MED ONE Stop: 04/15/18 07:23 Clindamycin Phosphate 600 mg/ (Premix) 50 mls @ 150 mls/hr IV ONETIME ONE Stop: 04/15/18 12:19 Last Admin: 04/15/18 17:30 Dose: Not Given Clindamycin Phosphate (Cleocin In D5w) Confirm Administered Dose 50 mls @ as directed .ROUTE .STK-MED ONE Stop: 04/15/18 11:53 Last Admin: 04/15/18 17:31 Dose: Not Given Lidocaine (Xylocaine-Mpf 2%) Confirm Administered Dose 5 ml .ROUTE .STK-MED ONE Stop: 04/15/18 08:56 Lidocaine (Xylocaine-Mpf 2%) Confirm Administered Dose 5 ml .ROUTE .STK-MED ONE Stop: 04/15/18 10:28 Midazolam HCl (Versed 1 Mg/Ml) Confirm Administered Dose 2 mg .ROUTE .STK-MED ONE Stop: 04/15/18 08:56 Midazolam HCl (Versed 1 Mg/Ml) Confirm Administered Dose 2 mg .ROUTE .STK-MED ONE Stop: 04/15/18 10:29 Ondansetron HCl (Zofran) Confirm Administered Dose 4 mg .ROUTE .STK-MED ONE Stop: 04/15/18 08:56 Ondansetron HCl (Zofran) Confirm Administered Dose 8 mg .ROUTE .STK-MED ONE Stop: 04/15/18 10:29 Propofol (Diprivan 20 Ml) Confirm Administered Dose 200 mg .ROUTE .STK-MED ONE Stop: 04/15/18 08:56 Propofol (Diprivan 20 Ml) Confirm Administered Dose 200 mg .ROUTE .STK-MED ONE Stop: 04/15/18 10:28 Propofol (Diprivan 20 Ml) Confirm Administered Dose 400 mg .ROUTE .STK-MED ONE Stop: 04/15/18 10:29 Propofol (Diprivan 20 Ml) Confirm Administered Dose 200 mg .ROUTE .STK-MED ONE Stop: 04/15/18 14:43 Rocuronium [place] (Zemuron) Confirm Administered Dose 100 mg .ROUTE .STK-MED ONE Stop: 04/15/18 08:56 - Exam General: Reports: Alert, Oriented, Cooperative, No Acute Distress HEENT: Reports: Pupils Equal, Pupils Reactive Lungs: Reports: Normal Respiratory Effort Cardiovascular: Reports: Regular Rate GI/Abdominal Exam: Soft Skin: Reports: Warm, Dry, Intact Wound/Incisions: Reports: Healing Well, Dressing Dry and Intact, No Drainage. Denies: Erythema
--- NOTE | 2018-04-16 15:17 | PCM48HPAN ---
Post Anesthesia Note - EVALUATION WITHIN 48HRS OF ANESTHETIC Vital Signs in Normal Range: Yes Patient Participated in Evaluation: Yes Respiratory Function Stable: Yes Airway Patent: Yes Cardiovascular Function Stable: Yes Hydration Status Stable: Yes Pain Control Satisfactory: Yes Nausea and Vomiting Control Satisfactory: Yes Mental Status Recovered: Yes Resp Rate: 16
--- NOTE | 2018-04-19 09:33 | OR ---
SURGEON: MANOHAR RUGGIERO MD DATE OF PROCEDURE: 04/15/2018 PREOPERATIVE DIAGNOSIS: Status post mastectomy in need for right breast reconstruction and left symmetry. POSTOPERATIVE DIAGNOSIS: Status post mastectomy in need for right breast reconstruction and left symmetry. PROCEDURES: 1. Right breast reconstruction with 520 mL submuscular silicone breast implant after skin-sparing mastectomy. 2. Left breast symmetry procedure with mastopexy. ENGINEERING SPECIALIST AND SECONDARY SURGEON: Fior Kelly MD. ANESTHESIA: General ET tube with local. ESTIMATED BLOOD LOSS: 100 mL for both portions or cases. INDICATIONS: Ms. Marija Curry is a 52-year-old female today with a right breast cancer. Dr. Kelly is here for mastectomy for this patient and sentinel lymph node biopsy. After discussion of risks and benefits, she would like to proceed with postmastectomy breast reconstruction on the right. We also discussed asymmetry lift procedure on the left to make it look more symmetric to the implant. Risks and benefits were discussed in detail and she was in agreement to proceed. Risks were including, but not limited to, bleeding, infection, damage to underlying or overlying structures, possible need for future interventions, and possible scarring. PROCEDURE IN DETAIL: After informed consent was obtained and placed on the chart, the patient was brought to the operating theater and laid in the supine position. After adequate local and general anesthesia was obtained, Dr. Kelly was able to begin her portion of the case and the sentinel node on the right and a right breast mastectomy was completed. I did assist during this portion of the case. Once Dr. Kelly had completed her portion, the outer drapes were taken down to new clean drapes below and attention was then paid to breast reconstruction. A sizer was placed and we decided upon a 520 mL silicone implant. The skin was healthy and the submuscular dissection was undertaken. Submuscular dissection was carried transecting the inframammary fold, attachments of the muscle, and elevating the pectoralis. Once elevated, meticulous hemostasis was obtained. The pocket was copiously irrigated with triple antibiotic solution. Once adequately irrigated, attention was then paid to the placement of the 520 mL Sizer. This was placed and then the 8x16 AlloMax was prepped in the normal fashion. AlloMax Davol Lot [id number] Batch [id number]. This was soaked in triple antibiotic solution and 8 x 16 piece was placed at the inframammary fold to be in connection with the pectoralis muscle. This was sutured in place over top of the Sizer using a 3-0 PDS suture in pants over vest fashion and [id number] sutures. Once this was sutured in place loosely, attention was then paid to removal of the 520 mL silicone breast sizers in placement of the direct implant. Reference number SRM 520 serial #[id number]. Once the silicone breast implant was placed using a no-touch technique, the remainder of the AlloMax was closed laterally to seal the pocket. A size 7 CAPO drain was placed above and below the AlloMax in the breast pocket and a size 10 CAPO drain was placed in the axillary area. It was brought out in a separate puncture wound at the lateral aspect of the inferior breast. Once this was completed, these were sutured in place using 3-0 Prolene sutures. Attention was then paid to meticulous hemostasis, irrigation and closure which was irrigated using triple antibiotic solution. Attention was then paid to closure and was done using deep 3-0 Monocryl Stratafix suture for the dermis and a running 4-0 Stratafix suture for the subcuticular. The patient tolerated this well. The wound was dressed with Steri-Strips and fluffs and Xeroform for the CAPO site. Attention was then paid to the left breast. The patient was sat up in the supine position. The left breast was tacked into place ensuring adequate symmetry with the right and the patient was laid back into the supine position. The staple markings for a design mastopexy were then outlined and a medial pedicle was used. The medial pedicle was isolated and the skin markings were completed and dissected. The medial pedicle was then rotated into place. The remainder of the skin was closed around this and stapled in place. Attention was then paid to meticulous hemostasis and closure. This was done using deep 3- 0 Monocryl Stratafix suture for the dermis and a running 4-0 Stratafix Monocryl suture for the skin. The patient tolerated this well and all counts and needles were correct at the end of the case. Excellent symmetry was appreciated at the end of the case. Attention was then paid to Steri-Strips to the left breast and fluffs and a compression bra. The patient tolerated the procedure well. All counts and needles were correct at the end of the case. FOLLOWUP INSTRUCTIONS: The patient will be maintained in the hospital for pain control and we will hopefully discharge her in the morning if she is doing well. HEGGTJUDITH / VERN /[id number] MTDD
== END 2018-04-16 14:40 | disposition home or self-care (01) ==
LOC: MW.SDS 09:49 → MERGE 11:30 → MW.MS 17:20 → MW.SDS 04-16 14:40
PROVIDERS: ATTEND Surgery
DX: C50.411 Malignant neoplasm of upper-outer quadrant of right female breast (principal); N65.1 Disproportion of reconstructed breast; F17.210 Nicotine dependence, cigarettes, uncomplicated; Z88.6 Allergy status to analgesic agent; Z88.0 Allergy status to penicillin; Z88.1 Allergy status to other antibiotic agents; Z79.899 Other long term (current) drug therapy
CPT/HCPCS: 19301; 19316; 19340; 38525; 78195; A9270; A9541; J0171; J1170; J1580; J2250; J2405; J3010; J3490; J7120; C1762; C1789; J0690; J2704